=== PATIENT | male | born 1950 | race Caucasian/White ===

== ENCOUNTER 2017-02-25 08:27 | Day surgery (SDC) | payer OTHER ==
--- NOTE | 2017-02-25 11:49 | GI Report ---
REFERRING PHYSICIAN: BRUNO Lock VICE PRESIDENT TAX: Mark Villeda MD PROCEDURE MEDICATION: Propofol as per anesthesia. INDICATIONS: A 66-year-old man is referred for his first colonoscopy screening. He occasionally has a little bright red blood on tissue paper when he wipes but not with the stool. He denies changes in his bowel habits. He denies a family history of colorectal cancer. PROCEDURE PERFORMED: Colonoscopy. PROCEDURE: On rectal exam, the patient does have an external hemorrhoid. The colonoscope was advanced into the rectum and slowly advanced all the way to the cecum. The appendiceal orifice and ileocecal valve looked normal. On slow withdrawal, the cecum, ascending colon, and transverse colon with no obvious intraluminal lesions noted. The descending colon and sigmoid colon with no obvious intraluminal lesions noted. A few small diverticula. Retroflexion of the rectum was normal. He does have hemorrhoids. Patient tolerated the procedure well. FINDINGS: 1. A slightly atonic redundant colon but normal mucosa with a few small diverticula. 2. Hemorrhoids. 3. No other bleeding site noted. RECOMMENDATIONS: 1. Would increase bulk or fiber in the diet. 2. Use Anusol HC suppositories p.r.n. 3. Follow up with Florina Renner. 4. Consider re-looking at his colon within 10 years, sooner if clinically indicated. cc: [facility]UNO Lock [facility] SHOREKailey
== END 2017-02-25 08:30 ==
LOC: OPSURG 08:27
PROVIDERS: ATTEND Internal Medicine Gastroenterology
DX: Z12.11 Encounter for screening for malignant neoplasm of colon (principal); K64.4 Residual hemorrhoidal skin tags; K57.30 Diverticulosis of large intestine without perforation or abscess without bleeding
CPT/HCPCS: 45379; J2704; J7120; S1016